=== PATIENT | male | born 1940 | race Two or more races ===

== ENCOUNTER → 2017-09-21 | Outpatient (CLI) | payer MEDICARE ==
--- NOTE | 2017-09-21 16:20 | Diagnostic Imaging Report ---
EXAM: Renal Ultrasound INDICATION: \[id number] \[id number] \S\LT KIDNEY STONE COMPARISON: None TECHNIQUE: Transverse and longitudinal images of the kidneys and bladder were obtained. FINDINGS: Right Kidney: Size: 11.2 cm Echogenicity: Normal Parenchymal thickness: Normal Collecting system: No hydronephrosis Stones: None Cyst/Mass: None Left Kidney: Size: 11.1 cm Echogenicity: Normal Parenchymal thickness: Normal Collecting system: No hydronephrosis Stones: 1 cm inferior pole calculus. Cyst/Mass: None Bladder: Bilateral chest seen. Prevoid volume 225cc, postvoid volume 54.8 cc. IMPRESSION: 1 cm left inferior pole renal calculus. Otherwise normal renal ultrasound. Signed by: Dr. Farshad Gallo MD on 09/21/2017 4:16 PM
--- NOTE | 2017-09-21 16:20 | Diagnostic Imaging Report ---
EXAM: Renal Ultrasound INDICATION: \[id number] \S\[id number] \S\LT KIDNEY STONE COMPARISON: None TECHNIQUE: Transverse and longitudinal images of the kidneys and bladder were obtained. FINDINGS: Right Kidney: Size: 11.2 cm Echogenicity: Normal Parenchymal thickness: Normal Collecting system: No hydronephrosis Stones: None Cyst/Mass: None Left Kidney: Size: 11.1 cm Echogenicity: Normal Parenchymal thickness: Normal Collecting system: No hydronephrosis Stones: 1 cm inferior pole calculus. Cyst/Mass: None Bladder: Bilateral chest seen. Prevoid volume 225cc, postvoid volume 54.8 cc. IMPRESSION: 1 cm left inferior pole renal calculus. Otherwise normal renal ultrasound. Signed by: Dr. Farshad Gallo MD on 09/21/2017 4:16 PM
== END ==
LOC: US 14:38
PROVIDERS: ATTEND Urology
DX: N20.0 Calculus of kidney (principal)
CPT/HCPCS: 76770; 76857

== ENCOUNTER → 2019-04-26 | Outpatient (CLI) | payer MEDICARE ==
[2019-04-26 10:15] LABS: ANION GAP 15.3 mmol/L (8-16); CALCIUM 9.2 mg/dL (8.4-10.2); CREATININE, SERUM 1.26 mg/dL (0.72-1.25); POTASSIUM 4.3 mmol/L (3.5-5.1)
== END ==
LOC: LAB 09:42
PROVIDERS: ATTEND Family Medicine
DX: E87.5 Hyperkalemia (principal)
CPT/HCPCS: 36415; 80048

== ENCOUNTER → 2020-08-23 | Outpatient (CLI) | payer MEDICARE | LOC: CT 06:37 | PROVIDERS: ATTEND Family Medicine | DX: G44.221 Chronic tension-type headache, intractable (principal) | CPT/HCPCS: 70450 ==

== ENCOUNTER → 2021-07-16 | Outpatient (CLI) | payer MEDICARE | LOC: CT 12:17 | PROVIDERS: ATTEND Family Medicine | DX: R51.9 Headache, unspecified (principal) | CPT/HCPCS: 70450 ==

== ENCOUNTER 2024-12-23 13:38 | Inpatient (IN) | payer MEDICARE ==
[~2024-12-23] VITALS: Ht 167.6 cm; Wt 113.4 kg
[2024-12-23] VITALS (7 sets, daily range): BP systolic 127; BP diastolic 63; PULSE 56–79; RESP 18–20; TEMP 97.5–98.2; O2SAT 96–100
[2024-12-23 15:00] LABS: BASOPHILS # (AUTO) 0.1 (0.0-0.1); BASOPHILS % 0.9 % (0.0-1.0); EOSINOPHILS # (AUTO) 0.3 (0.0-0.4); EOSINOPHILS % 5.4 % (0.0-6.0); HEMATOCRIT 40.9 % (38.2-49.6); HEMOGLOBIN 13.7 g/dL (14.0-18.0); LYMPHOCYTES # (AUTO) 1.6 (1.0-3.2); LYMPHOCYTES % 28.4 % (18.0-39.1); MEAN CORPUSCULAR HEMOGLOBIN 33.5 pg (28-32); MEAN CORPUSCULAR HGB CONC 33.5 g/dL (31-35); MONOCYTES # (AUTO) 0.5 (0.2-0.8); NEUTROPHILS # (AUTO) 3.3 (2.1-6.9); NEUTROPHILS % 57.1 % (38.7-80.0); PLATELET COUNT 182 x10e3/uL (140-360); RED BLOOD COUNT 4.09 x10e6/uL (4.3-5.7); RED CELL DISTRIBUTION WIDTH 13.2 % (11.7-14.4); WHITE BLOOD COUNT 5.77 x10e3/uL (4.8-10.8)
[2024-12-23 15:17] LABS: INR 1.05; PROTHROMBIN TIME 14.3 seconds (11.9-14.5)
[2024-12-23 15:24] LABS: ALBUMIN 3.3 g/dL (3.5-5.0); ALBUMIN/GLOBULIN RATIO 0.7 (0.8-2.0); ANION GAP 15.7 mmol/L (8-16); BILIRUBIN,TOTAL 1.1 mg/dL (0.2-1.2); CALCIUM 8.9 mg/dL (8.4-10.2); CREATININE, SERUM 1.16 mg/dL (0.72-1.25); POTASSIUM 4.7 mmol/L (3.5-5.1); TOTAL PROTEIN 8.1 g/dL (6.5-8.1)
[2024-12-23] MEDS: ENOXAPARIN SODIUM INJ 100 MG/ML SYR SC SCH (16:49)
[2024-12-24] VITALS (10 sets, daily range): BP systolic 96–137; BP diastolic 50–85; PULSE 60–93; RESP 18–20; TEMP 97.5–98.4; O2SAT 96–100
[2024-12-24 05:13] LABS: BASOPHILS % 0.4 % (0.0-1.0); EOSINOPHILS # (AUTO) 0.4 (0.0-0.4); EOSINOPHILS % 6.5 % (0.0-6.0); HEMATOCRIT 34.2 % (38.2-49.6); HEMOGLOBIN 11.7 g/dL (14.0-18.0); LYMPHOCYTES # (AUTO) 1.5 (1.0-3.2); LYMPHOCYTES % 25.6 % (18.0-39.1); MEAN CORPUSCULAR HEMOGLOBIN 33.5 pg (28-32); MEAN CORPUSCULAR HGB CONC 34.2 g/dL (31-35); MONOCYTES # (AUTO) 0.6 (0.2-0.8); MONOCYTES % 10.8 % (4.4-11.3); NEUTROPHILS # (AUTO) 3.2 (2.1-6.9); NEUTROPHILS % 56.3 % (38.7-80.0); PLATELET COUNT 129 x10e3/uL (140-360); RED BLOOD COUNT 3.49 x10e6/uL (4.3-5.7); RED CELL DISTRIBUTION WIDTH 12.9 % (11.7-14.4); WHITE BLOOD COUNT 5.66 x10e3/uL (4.8-10.8)
[2024-12-24 05:24] LABS: CALCIUM 8.4 mg/dL (8.4-10.2); CREATININE, SERUM 1.13 mg/dL (0.72-1.25)
[2024-12-24] MEDS ORDERED: ALBUTEROL/IPRATROPIUM 3 ML NEB NEB PRN (12:00)
[2024-12-24] MEDS ORDERED: ACETAMINOPHEN 325 MG TAB PO PRN (12:00)
[2024-12-24] MEDS ORDERED: METOPROLOL TARTRATE INJ 1 MG/ML VIAL IV PRN (12:00)
[2024-12-24] MEDS ORDERED: DOCUSATE SODIUM 100 MG CAP PO PRN (12:00)
[2024-12-24] MEDS ORDERED: DEXTROSE 50% SYRINGE 50 ML IV PRN (12:00)
[2024-12-24] MEDS ORDERED: MELATONIN 3 MG TAB PO PRN (12:00)
[2024-12-24] MEDS ORDERED: FLOMAX0.4 MG PO (13:42)
[2024-12-24] MEDS ORDERED: NEURONTIN300 MG PO (13:42)
[2024-12-24] MEDS ORDERED: CYCLOBENZAPRINE10 MG PO (13:42)
[2024-12-24] MEDS ORDERED: ELIQUIS2.5 MG PO (13:42)
[2024-12-24] MEDS ORDERED: METHOCARBAMOL750 MG PO (13:42)
[2024-12-24] MEDS ORDERED: FAMOTIDINE20 MG PO (13:42)
[2024-12-24] MEDS ORDERED: NIFEDIPINE ER30 M1 PO (13:42)
[2024-12-24] MEDS ORDERED: HYDRALAZINE HCL25 MG PO (13:42)
[2024-12-24 13:53] LABS: CHOL/HDL RATIO 2.5 (3.9-4.7)
[2024-12-24] MEDS: INSULIN REGULAR, HUMAN 100 UNIT/1 ML SQ SCH (16:21)
[2024-12-25] VITALS (7 sets, daily range): BP systolic 110–156; BP diastolic 45–63; PULSE 57–83; RESP 17–20; TEMP 97.4–98.1; O2SAT 96–100
[2024-12-25 06:13] LABS: BASOPHILS % 0.7 % (0.0-1.0); EOSINOPHILS # (AUTO) 0.3 (0.0-0.4); EOSINOPHILS % 5.8 % (0.0-6.0); HEMATOCRIT 37.7 % (38.2-49.6); HEMOGLOBIN 12.3 g/dL (14.0-18.0); LYMPHOCYTES # (AUTO) 1.9 (1.0-3.2); MEAN CORPUSCULAR HEMOGLOBIN 33.3 pg (28-32); MEAN CORPUSCULAR HGB CONC 32.6 g/dL (31-35); MEAN CORPUSCULAR VOLUME 102.2 fL (81-99); MONOCYTES # (AUTO) 0.5 (0.2-0.8); MONOCYTES % 9.7 % (4.4-11.3); NEUTROPHILS # (AUTO) 2.6 (2.1-6.9); NEUTROPHILS % 48.6 % (38.7-80.0); PLATELET COUNT 112 x10e3/uL (140-360); RED BLOOD COUNT 3.69 x10e6/uL (4.3-5.7); RED CELL DISTRIBUTION WIDTH 13.2 % (11.7-14.4); WHITE BLOOD COUNT 5.37 x10e3/uL (4.8-10.8)
[2024-12-25 06:38] LABS: ANION GAP 16.6 mmol/L (8-16); CALCIUM 8.8 mg/dL (8.4-10.2); CREATININE, SERUM 1.04 mg/dL (0.72-1.25); POTASSIUM 4.6 mmol/L (3.5-5.1)
[2024-12-25] MEDS: PANTOPRAZOLE SOD 40 MG TABEC PO SCH (08:45)
[2024-12-25] MEDS ORDERED: ELIQUIS5 MG PO (08:52)
[2024-12-25] MEDS ORDERED: SODIUM BICARBO650 MG PO (08:56)
[2024-12-25] MEDS: SODIUM BICARBONATE 650 MG TAB PO SCH (09:03)
== END 2024-12-25 14:05 | disposition home or self-care (01) | DRG 300 ==
LOC: ER 13:42 → ERHOLD 14:25 → MED/SURG3 21:41
PROVIDERS: ADMIT Internal Medicine; ATTEND Internal Medicine
DX: I82.402 Acute embolism and thrombosis of unspecified deep veins of left lower extremity (principal); Z68.41 Body mass index [BMI] 40.0-44.9, adult; E66.01 Morbid (severe) obesity due to excess calories; D53.9 Nutritional anemia, unspecified; I10 Essential (primary) hypertension; E78.5 Hyperlipidemia, unspecified; N40.0 Benign prostatic hyperplasia without lower urinary tract symptoms; R74.01 Elevation of levels of liver transaminase levels; Z79.01 Long term (current) use of anticoagulants; Z79.02 Long term (current) use of antithrombotics/antiplatelets; I25.2 Old myocardial infarction
CPT/HCPCS: 36415; 80048; 80053; 80061; 82948; 83036; 85025; 85610; 94799; 96372; 99284; J1650; J2470

== ENCOUNTER → 2024-12-23 | Outpatient (REF) | payer MEDICARE ==
[~2024-12-23] MED LIST: CYCLOBENZAPRINE10 MG PO; ELIQUIS2.5 MG PO; ELIQUIS5 MG PO; FAMOTIDINE20 MG PO; FLOMAX0.4 MG PO; HYDRALAZINE HCL25 MG PO; METHOCARBAMOL750 MG PO; NEURONTIN300 MG PO; NIFEDIPINE ER30 M1 PO; SODIUM BICARBO650 MG PO
== END ==
LOC: RAD 12:49
PROVIDERS: ATTEND Family Medicine
DX: R22.42 Localized swelling, mass and lump, left lower limb (principal)
CPT/HCPCS: 93971